=== PATIENT | female | born 1975 ===

== ENCOUNTER 2019-03-26 09:22 | Emergency (ER) | payer OTHER ==
[~2019-03-26] VITALS: Ht 149.9 cm; Wt 63.0 kg
[~2019-03-26 09:22] MED LIST: CIPRO500 MG PO; CORTISONE14 GM TP; IBUPROFEN800 MG PO; ORPH100T PO; SYNTHROID125 MCG PO; SYNTHROID75 MCG; TUSSIONEX PENNKI5 ML PO
[2019-03-26] MEDS ORDERED: LEVO-T50 MCG PO (10:09)
[2019-03-26] MEDS ORDERED: ABATINEX680 MG PO (10:09)
[2019-03-26] MEDS ORDERED: PEPCID AC20 MG PO (10:09)
[2019-03-26] MEDS ORDERED: LEVAQUIN750 MG PO (10:09)
[2019-03-26] MEDS ORDERED: NAPROXEN500 MG PO ×2 (15:11)
[2019-03-26] MEDS ORDERED: SKELAXIN800 MG PO ×2 (15:11)
== END 2019-03-26 15:45 | disposition home or self-care (01) ==
LOC: ER 09:22
DX: K57.90 Diverticulosis of intestine, part unspecified, without perforation or abscess without bleeding (principal); R10.31 Right lower quadrant pain

== ENCOUNTER 2021-02-01 09:10 | Emergency (ER) | payer OTHER ==
[~2021-02-01] VITALS: Ht 149.9 cm; Wt 60.3 kg
[~2021-02-01 09:10] MED LIST changes: +ABATINEX680 MG PO; +LEVAQUIN750 MG PO; +LEVO-T50 MCG PO; +NAPROXEN500 MG PO; +PEPCID AC20 MG PO; +SKELAXIN800 MG PO
[2021-02-01] MEDS ORDERED: SYNTHROID50 MCG PO (09:40)
[2021-02-01] MEDS ORDERED: DICLOFENAC POTA50 MG PO (16:28)
[2021-02-01] MEDS ORDERED: SKELAXIN800 MG PO (16:28)
== END 2021-02-01 17:18 ==
LOC: ER 09:10
DX: M94.0 Chondrocostal junction syndrome [Tietze] (principal); Z03.818 Encounter for observation for suspected exposure to other biological agents ruled out